=== PATIENT | male | born 1970 | race African-American/Black ===

== ENCOUNTER 2016-09-19 14:42 | Emergency (ER) | payer OTHER, MEDICARE ==
--- NOTE | ~2016-09-19 | CR230 ---
[facility]. [facility] A Service of [facility] & [facility] RADIOLOGY TEXT RESULTS PATIENT: GEOVANY WALTERS LOCATION: SED : [birth year] UNIT #: [id number] AGE: [address]: Rasheed Mattson MD SEX: M ORDER DR: [id number] [place] [id number] E MR#: [id number] Acc #: [id number] NAME: GEOVANY WALTERS : 1970 SEX: M STUDY DATE/TIME: 09/19/2016 14:37 UNIT: SED ROOM: STUDY DESCRIPTION: CR Shoulder Min 2 View Rt Attending Physician: Rasheed Mattson M.D. Referring Physician: Rasheed Mattson M.D. Ordering Physician: Rasheed Mattson M.D. Primary Care Physician: Danyel Smith M.D. MEDICAL IMAGING REPORT This report is preliminary unless electronic signature is present. EXAM Right shoulder, 3 views. INDICATIONS Shoulder pain after falling last week. COMPARISON STUDIES No comparison. FINDINGS There is no fracture or dislocation. The joint spaces are preserved. Shunt catheter tubing is noted. IMPRESSION No fracture or dislocation. Dictated by... Jeromy De La Cruz M.D. THIS IS AN ELECTRONICALLY VERIFIED REPORT Jeromy De La Cruz M.D. at 09/22/2016 12:30 PM ROZ/madiha TD: 09/19/2016 17:00 JOB #: [id number] MEDICAL IMAGING REPORT Page 1 of 1
--- NOTE | ~2016-09-19 | CR181 ---
[facility]. [facility] A Service of [facility] & [facility] RADIOLOGY TEXT RESULTS PATIENT: GEOVANY WALTERS LOCATION: SED : [birth year] UNIT #: [id number] AGE: [address]: Rasheed Mattson MD SEX: M ORDER DR: [id number] [place] [id number] E MR#: [id number] Acc #: [id number] NAME: GEOVANY WALTERS : 1970 SEX: M STUDY DATE/TIME: 09/19/2016 14:37 UNIT: SED ROOM: STUDY DESCRIPTION: CR Lumbar Spine 2 or 3 Views Attending Physician: Rasheed Mattson M.D. Referring Physician: Rasheed Mattson M.D. Ordering Physician: Rasheed Mattson M.D. Primary Care Physician: Danyel Smith M.D. MEDICAL IMAGING REPORT This report is preliminary unless electronic signature is present. EXAM Lumbar spine, 3 views. INDICATION Back pain after falling 1 week ago. History of spina bifida. COMPARISON No comparisons were available. FINDINGS Levoscoliosis. There is incomplete posterior fusion of multiple lower lumbar vertebral bodies consistent with a history of spina bifida. There is no acute compression fracture. There is mild degenerative changes of the L1-L2 and L2-L3 disc spaces. Some sort of catheter tubing projecting over the left side of the abdomen on the AP view only. IMPRESSION No acute findings. Dictated by... Jeromy De La Cruz M.D. THIS IS AN ELECTRONICALLY VERIFIED REPORT Jeromy De La Cruz M.D. at 09/22/2016 12:30 PM Liset TD: 09/19/2016 16:56 JOB #: [id number] MEDICAL IMAGING REPORT Page 1 of 1
[~2016-09-19 14:42] MED LIST: ACETAMINOPHEN PO; ALBUTEROL MININEB; ALBUTEROL17 GM INH; AMARYL PO; BACTRIM DS TABL1 TA1 PO; BACTRIM DS TABL1 TAB; BENICAR PO; CALAZIME P113 GM OIN EXT; COZAAR; CYMBALTA20 MG PO; DITROPAN; DITROPAN PO; DITROPAN5 MG PO; DYAZIDE 371 CAP 37.5 PO; FAMOTIDINE PO; FLAGYL PO; GLUCOTROL PO; HYDROCODON-ACE1 EAC7 PO; HYDROCODONE 10MG PO; JANUVIA50 MG PO; KEFLEX PO; LEVAQUIN PO; LOMOTIL TABLET1 TAB PO; LORTAB 5/500 TA1 TA1 PO; METFORMIN PO; NEURONTIN800 MG; NORCO1 TAB 10/3; POLYSPORIN15 GM TOP; PREDNISONE; PREDNISONE50 MG PO; ROBITUSSIN A-C S5 ML; VASOLEX OINTMEN30 GM TP; VIBRAMYCIN100 M1 PO; WELLBUTRIN PO; ZOFRAN SL; ZYVOX600 MG PO
[2016-09-28] MEDS ORDERED: NOVOLOG100 U/ML (07:23)
[2016-09-28] MEDS ORDERED: BUSPAR (07:24)
== END 2016-09-19 15:41 | disposition home or self-care (01) ==
LOC: SED 14:42
DX: S33.5XXA Sprain of ligaments of lumbar spine, initial encounter (principal); S46.911A Strain of unspecified muscle, fascia and tendon at shoulder and upper arm level, right arm, initial encounter; Y92.098 Other place in other non-institutional residence as the place of occurrence of the external cause; Z79.899 Other long term (current) drug therapy; W18.39XA Other fall on same level, initial encounter
CPT/HCPCS: 72100; 73030; 99284

== ENCOUNTER 2016-09-28 07:47 | Emergency (ER) | payer OTHER ==
--- NOTE | ~2016-09-28 | CR63 ---
[facility]. [facility] A Service of [facility] & [facility] RADIOLOGY TEXT RESULTS PATIENT: GEOVANY WALTERS LOCATION: SED : [birth year] UNIT #: [id number] AGE: [address]: Geovanni Ferreira MD SEX: M ORDER DR: [id number] [address] [address] [id number] E MR#: [id number] Acc #: [id number] NAME: GEOVANY WALTERS : 1970 SEX: M STUDY DATE/TIME: 09/28/2016 7:44 UNIT: SED ROOM: STUDY DESCRIPTION: CR Chest 2 View Attending Physician: Geovanni Ferreira M.D. Ordering Physician: Geovanni Ferreira M.D. Primary Care Physician: Danyel Smith M.D. MEDICAL IMAGING REPORT This report is preliminary unless electronic signature is present. EXAM Two-view chest 09/28/2016 HISTORY 46-year-old male with cough beginning yesterday. Sore throat. Shortness of breath. COMPARISON Chest 04/24/2016 FINDINGS 2 views of the chest demonstrate clear lungs. No pleural effusion or pneumothorax. Heart size and mediastinum are normal. Pulmonary vasculature normal. IMPRESSION No acute cardiopulmonary findings. Dictated by... Jefferson Mcclain M.D. THIS IS AN ELECTRONICALLY VERIFIED REPORT Jefferson Mcclain M.D. at 09/28/2016 2:13 PM Shayne TD: 09/28/2016 08:39 JOB #: [id number] MEDICAL IMAGING REPORT Page 1 of 1
[~2016-09-28 07:47] MED LIST changes: +BUSPAR; +NOVOLOG100 U/ML
== END 2016-09-28 08:15 | disposition home or self-care (01) ==
LOC: SED 07:47
DX: J02.9 Acute pharyngitis, unspecified (principal); E11.9 Type 2 diabetes mellitus without complications; I10 Essential (primary) hypertension; Z79.4 Long term (current) use of insulin; Z91.040 Latex allergy status; Z79.899 Other long term (current) drug therapy
CPT/HCPCS: 36415; 71020; 87651; 94640; 99284

== ENCOUNTER 2016-10-26 20:15 | Emergency (ER) | payer OTHER ==
--- NOTE | ~2016-10-26 | CR72 ---
[facility] A Service of [facility] & [facility] RADIOLOGY TEXT RESULTS PATIENT: GEOVANY WALTERS LOCATION: SED : [birth year] UNIT #: [id number] AGE: [address]: Rasheed Mattson MD SEX: M ORDER DR: [id number] [place] [id number] E MR#: [id number] Acc #: [id number] NAME: GEOVANY WALTERS : 1970 SEX: M STUDY DATE/TIME: 10/26/2016 20:37 UNIT: SED ROOM: STUDY DESCRIPTION: CR Chest Single View Portable Attending Physician: Rasheed Mattson M.D. Ordering Physician: Rasheed Mattson M.D. Primary Care Physician: Danyel Smith M.D. MEDICAL IMAGING REPORT This report is preliminary unless electronic signature is present. EXAM Chest portable 10/26/2016 2037 hours HISTORY 46-year-old man with complaint of chest pain today. History of hypertension. COMPARISON 09/28/2016 FINDINGS Portable upright chest is limited by large body habitus and low lung volumes. Heart size is within normal limits. The lungs are clear. There is vertically oriented tubing over the right neck and right chest likely ventriculoperitoneal shunt tubing unchanged. IMPRESSION Low lung volumes with no acute cardiopulmonary findings. Dictated by... Christine Layton M.D. THIS IS AN ELECTRONICALLY VERIFIED REPORT Christine Layton M.D. at 10/27/2016 8:49 AM [place] TD: 10/27/2016 07:52 JOB #: [id number] MEDICAL IMAGING REPORT Page 1 of 1
--- NOTE | ~2016-10-26 | EKG ---
PATIENT: GEOVANY WALTERS UNIT #: [id number] Ventricular Rate: 124 BPM Atrial Rate: 124 BPM P-R Interval: 122 ms QRS Duration: 88 ms Q-T Interval: 298 ms QTC Calculation(Bezet): 428 ms P Seibert: 52 degrees Calculated R Seibert: 86 degrees Calculated T Seibert: 24 degrees Diagnosis Line: Sinus tachycardia Diagnosis Line: Otherwise normal ECG Diagnosis Line: When compared with ECG of 24-APR-2016 15:09, Diagnosis Line: No significant change was found Diagnosis Line: Confirmed by MYNOR MCCLELLAN MD ([id number]) on Diagnosis Line: 10/27/2016 3:41:22 PM INTERPRETING MD: VY PELAYO
[2016-10-26 21:11] LABS: BASOPHIL% 0.4 % (0-2.5); EOSINOPHIL# 0.1 X10e3 (0-0.7); EOSINOPHIL% 1.5 % (0.0-7.0); HEMATOCRIT 45.7 % (38.0-50.0); HEMOGLOBIN 14.8 gm/dL (13.0-16.0); LYMPHOCYTE# 0.8 X10e3 (1.0-3.5); LYMPHOCYTE% 16.1 % (17.0-45.0); MEAN CELL VOLUME 89.7 FL (83-96); MEAN CORPUSCULAR HGB CONC 32.3 g/dL (30-36); MEAN PLATELET VOLUME 9.8 FL (6.5-11.5); MONOCYTE# 0.3 X10e3 (0-1.0); MONOCYTE% 5.8 % (3.0-12.0); NEUTROPHIL# 3.8 X10e3 (1.5-7.1); NEUTROPHIL% 76.2 % (40-75); PLATELET COUNT 191 X10e3 (140-420)
[2016-10-26 21:16] LABS: DIFF IND NO
[2016-10-26 21:26] LABS: POC - CKMB 1.5 ng/mL (0.0-7.9); POC - TROPONIN <0.05 ng/mL (<=0.05)
[2016-10-26 21:29] LABS: ALBUMIN SERUM 3.8 g/dL (3.5-5.0); BILIRUBIN, DIRECT 0.1 mg/dL (0.0-0.2); BILIRUBIN,INDIRECT 0.6 mg/dL (0.0-0.9); BILIRUBIN,TOTAL 0.7 mg/dL (0.2-2.0); BUN/CREATININE RATIO 14.44; CALCIUM SERUM 8.9 mg/dL (8.4-10.2); CREATININE SERUM 0.9 mg/dL (0.6-1.4); GLOM FILT RATE Estimated 117.5 mL/min (>60); POTASSIUM 3.7 mmol/L (3.5-5.1); PROTEIN TOTAL SERUM 8.1 g/dL (6.0-8.3)
== END 2016-10-26 22:53 | disposition home or self-care (01) ==
LOC: SED 20:15
PROVIDERS: Emergency Medicine
DX: R07.89 Other chest pain (principal); E11.65 Type 2 diabetes mellitus with hyperglycemia; Z79.899 Other long term (current) drug therapy; Z79.4 Long term (current) use of insulin
CPT/HCPCS: 36415; 71010; 80048; 80076; 82553; 82947; 84484; 85025; 93005; 96361; 96374; 96375; 99284; J2405

== ENCOUNTER 2016-11-24 09:36 | Emergency (ER) | payer OTHER ==
--- NOTE | ~2016-11-24 | CR123 ---
[facility] A Service of [facility] & [facility] RADIOLOGY TEXT RESULTS PATIENT: GEOVANY WALTERS LOCATION: [facility] : [birth year] UNIT #: [id number] AGE: [address]: Adrien Cárdenas MD SEX: M ORDER DR: [id number] [facility] [address] [place], [place] [address] [id number] P MR#: [id number] Acc #: [id number] NAME: GEOVANY WALTERS : 1970 SEX: M STUDY DATE/TIME: 11/24/2016 10:15 UNIT: [facility] ROOM: STUDY DESCRIPTION: CR Foot 2 Views Lt Attending Physician: Adrien Cárdenas M.D. Ordering Physician: Adrien Cárdenas M.D. Primary Care Physician: Danyel Smith M.D. MEDICAL IMAGING REPORT This report is preliminary unless electronic signature is present EXAM Left foot, 3 views, 11/24/2016, 1015 hours. CLINICAL HISTORY 46-year-old man with pain and ulcer at the great toe for 3-4 weeks. History of diabetes. COMPARISON None. FINDINGS AP, lateral, and oblique views demonstrate soft tissue swelling of the great toe from the level of the metatarsophalangeal joint distally. There is no fracture, dislocation, or plain film evidence of osteomyelitis. There is flattening and truncation of the distal phalanx of the second toe with overlying soft tissue swelling. The distal cortex has a thin fine line which is intact which favors that this is related to old change or developmental rather than acute process. IMPRESSION 1. Soft tissue swelling of the great toe with no fracture, dislocation or plain film evidence of osteomyelitis. 2. Soft tissue swelling of the second toe with a truncated blunted appearance of the distal tuft of the distal phalanx with cortex intact suggesting this is related to old trauma or developmental change. STAT * RESULT Dictated by... Christine Layton M.D. [facility] A Service of [facility] & [facility] RADIOLOGY TEXT RESULTS PATIENT: GEOVANY WALTERS LOCATION: [facility] : [birth year] UNIT #: [id number] AGE: [address]: Adrien Cárdenas MD SEX: M ORDER DR: THIS IS AN ELECTRONICALLY VERIFIED REPORT Christine Layton M.D. at 11/24/2016 2:31 PM Anhtony TD: 11/24/2016 10:47 JOB #: [id number] MEDICAL IMAGING REPORT Page 1 of 1 COPY
[2016-11-24 10:44] LABS: BASOPHIL% 0.4 % (0-2.5); EOSINOPHIL# 0.2 X10e3 (0-0.7); EOSINOPHIL% 3.1 % (0.0-7.0); HEMATOCRIT 42.7 % (38.0-50.0); HEMOGLOBIN 13.7 gm/dL (13.0-16.0); LYMPHOCYTE# 1.8 X10e3 (1.0-3.5); MEAN CELL VOLUME 89.4 FL (83-96); MEAN CORPUSCULAR HEMOGLOBIN 28.7 PG (28-34); MEAN CORPUSCULAR HGB CONC 32.1 g/dL (30-36); MONOCYTE# 0.3 X10e3 (0-1.0); MONOCYTE% 5.4 % (3.0-12.0); NEUTROPHIL# 3.3 X10e3 (1.5-7.1); NEUTROPHIL% 59.1 % (40-75); PLATELET COUNT 262 X10e3 (140-420); RED BLOOD COUNT 4.77 X10e (3.90-5.60); RED CELL DISTRIBUTION WIDTH 14.9 % (11.0-15.5); WHITE BLOOD COUNT 5.5 X10e3 (4.0-10.5)
[2016-11-24 10:48] LABS: DIFF IND NO
[2016-11-24 11:19] LABS: CALCIUM SERUM 8.7 mg/dL (8.4-10.2); CREATININE SERUM 0.7 mg/dL (0.6-1.4); GLOM FILT RATE Estimated 130.3 mL/min (>60); POTASSIUM 4.1 mmol/L (3.5-5.1)
== END 2016-11-24 11:26 | disposition home or self-care (01) ==
LOC: CED 09:36
PROVIDERS: Emergency Medicine
DX: E11.622 Type 2 diabetes mellitus with other skin ulcer (principal); L97.829 Non-pressure chronic ulcer of other part of left lower leg with unspecified severity; I10 Essential (primary) hypertension
CPT/HCPCS: 36415; 73620; 80048; 82947; 85025; 99284

== ENCOUNTER 2016-12-20 14:06 | Emergency (ER) | payer OTHER ==
[2016-12-20] MEDS ORDERED: JANUVIA50 MG (14:12)
[2016-12-20] MEDS ORDERED: AUGMENTIN PO (14:12)
[2016-12-20] MEDS ORDERED: HYDROCODON-ACE1 EAC5 (14:12)
[2016-12-20] MEDS ORDERED: CYMBALTA (14:12)
[2016-12-20] MEDS ORDERED: AMARYL1 MG (14:12)
[2016-12-20] MEDS ORDERED: DITROPAN XL (14:12)
[2016-12-20] MEDS ORDERED: COZAAR (14:12)
== END 2016-12-20 15:07 | disposition home or self-care (01) ==
LOC: SED 14:06
DX: H60.91 Unspecified otitis externa, right ear (principal); E11.9 Type 2 diabetes mellitus without complications; Z91.040 Latex allergy status
CPT/HCPCS: 99282

== ENCOUNTER 2017-02-09 11:07 | Emergency (ER) | payer OTHER ==
[~2017-02-09] VITALS: Ht 170.2 cm; Wt 126.1 kg
--- NOTE | ~2017-02-09 | CR229 ---
[facility] A Service of [facility] & [facility] RADIOLOGY TEXT RESULTS PATIENT: GEOVANY WALTERS LOCATION: [facility] : [birth year] UNIT #: [id number] AGE: [address]: Yumi Hadley APRN SEX: M ORDER DR: [id number] [facility] [address] [place], [place] [address] [id number] E MR#: [id number] Acc #: [id number] NAME: GEOVANY WALTERS : 1970 SEX: M STUDY DATE/TIME: 02/09/2017 12:55 UNIT: [facility] ROOM: STUDY DESCRIPTION: CR Shoulder Min 2 View Lt Attending Physician: Yumi Hadley A.P.R.N. Ordering Physician: Ed Doctor [id number] [facility] Primary Care Physician: Shemar Schrader M.D. MEDICAL IMAGING REPORT This report is preliminary unless electronic signature is present EXAM Left shoulder 02/09/17 INDICATIONS Left shoulder pain for 2 weeks. Prior history of rotator cuff tear. FINDINGS Three views of the left shoulder were obtained. There is AC joint glenohumeral joint arthropathy. No dislocation or fracture is seen. There is no AC joint separation. IMPRESSION AC joint and glenohumeral joint arthropathy. No fracture or malalignment identified. Dictated by... Andriy Llanes Jr., M.D. THIS IS AN ELECTRONICALLY VERIFIED REPORT Andriy Llanes Jr., M.D. at 02/10/2017 6:37 AM CONSTANZA/roscoe TD: 02/10/2017 04:00 JOB #: [id number] MEDICAL IMAGING REPORT Page 1 of 1 COPY
[~2017-02-09 11:07] MED LIST changes: +AMARYL1 MG; +AUGMENTIN PO; +CYMBALTA; +DITROPAN XL; +HYDROCODON-ACE1 EAC5; +JANUVIA50 MG
== END 2017-02-09 13:54 | disposition home or self-care (01) ==
LOC: CFTX 11:07 → CED 11:07 → CFTX 13:35
DX: M25.512 Pain in left shoulder (principal); I10 Essential (primary) hypertension; E11.9 Type 2 diabetes mellitus without complications; Z91.040 Latex allergy status; Z79.4 Long term (current) use of insulin; Z79.899 Other long term (current) drug therapy
CPT/HCPCS: 73030; 99283

== ENCOUNTER → 2017-02-12 | Outpatient (CLI) | payer OTHER ==
[2017-02-15 14:13] LABS: TESTOSTERONE FREE (PNL) 21.3 pg/mL (35.0-155.0)
== END | disposition home or self-care (01) ==
LOC: SLAB 16:04
PROVIDERS: Family Medicine
DX: E11.9 Type 2 diabetes mellitus without complications (principal)
CPT/HCPCS: 36415; 82043; 84402; 84403; 84443